=== PATIENT | female | born 1970 | race Caucasian/White ===

== ENCOUNTER 2020-03-23 11:07 | Outpatient (CLI) | payer OTHER, SELFPAY ==
--- NOTE | ~2020-03-23 | PE_ITS ---
EXAMINATION: PET skull to mid thigh DATE: 03/23/2020 13:13 INDICATION: Lung nodule on prior CT. TECHNIQUE: Blood glucose level was 101 mg/dL. 7.888 mCi of 18-fluorodeoxyglucose (18-FDG) was adminis tered i.v. Low dose computed tomography (CT) images were acquired from the base of the brain to the p roximal thighs for attenuation correction and anatomic localization. Positron emission tomography (PE T) images were acquired in the same distribution beginning 65 minutes after injection. Images includi ng fused PET/CT images were reconstructed in axial, coronal, and sagittal planes. Automated exposure control technique was employed. The dose-length product was 370.48mGy-cm. COMPARISON: None FINDINGS: Head/neck: There is symmetric increased activity in the oral cavity most prominent at the sublingual gland, as w ell as at the bilateral parotid glands, laryngeal muscles, ocular muscles and at the longus capitis m uscles without CT correlate, likely physiologic. No pathologically enlarged cervical lymphadenopathy or suspicious foci of increased FDG uptake in the visualized head or neck. Chest: Negligible FDG activity at a wedge-shaped 1.7 cm long by 12 mm diameter cavitary lesion at the small products assembler ior right apex with CT appearance suggesting impacted material within a dilated bronchus. Mild depend ent atelectasis in the bilateral lower lobes. No other suspicious pulmonary nodules, pneumonia, pulmo nary edema or pleural effusion. Heart size is normal. No pericardial effusion. Thoracic aorta is norm al in caliber. No pathologically enlarged or FDG avid thoracic lymphadenopathy. Abdomen/pelvis/proximal thighs: Physiologic renal accumulation and excretion of FDG activity in the kidneys, bladder and along portio ns of ureters. Normal degree and heterogenous pattern of increased uptake throughout the liver withou t radiologic correlate or dominant FDG avid lesion. The gallbladder, pancreas, spleen and bilateral a drenal glands are normal. Mild uptake scattered throughout the bowels without radiologic correlate, a lso likely physiologic. T-shaped IUD projected position within the otherwise normal uterus. There is a tampon within the vaginal vault which appears to take up a small amount of likely urine activity in feriorly. No other abnormal foci of increased FDG uptake or pathologically enlarged lymphadenopathy i n the abdomen, pelvis or proximal thighs. Musculoskeletal: No suspicious lytic, blastic or FDG avid bone lesions. Symmetric mild increased uptake overlying the bilateral greater trochanters consistent with trochanteric bursitis. IMPRESSION: 1. No significant FDG uptake at a 1.7 x 1.2 cm cavitary lesion at the left apex with CT appearance balderrama ggesting impacted debris within a dilated bronchus. While the absence of FDG uptake is reassuring wou ld recommend six-month follow-up low-dose noncontrast chest CT. 2. No other lesions suspicious for primary or metastatic disease. Reviewed, dictated and finalized at location B. IMPRESSION: 1. No significant FDG uptake at a 1.7 x 1.2 cm cavitary lesion at the left apex with CT appearance suggesting impacted debris within a dilated bronchus. While the absence of FDG uptake is reassuring would recommend six-month follow-up lo w-dose noncontrast chest CT. 2. No other lesions suspicious for primary or metastatic disease.
[2020-03-23 11:42] LABS: Glucose Point of Care 101 (65-105)
== END 2020-03-23 11:08 | disposition home or self-care (01) ==
DX: R91.1 Solitary pulmonary nodule (principal)
CPT/HCPCS: 78815; A9552